=== PATIENT | male | born 1975 | race Caucasian/White ===

== ENCOUNTER → 2023-09-20 14:54 | Outpatient (REF) | payer BC, SELFPAY | LOC: PAVMRI 14:54 | PROVIDERS: ATTENDING PHYSICIAN Physician Assistant Surgical; FAMILY PHYSICIAN Family Medicine | DX: M16.12 Unilateral primary osteoarthritis, left hip (principal) | CPT/HCPCS: 73721 ==

== ENCOUNTER 2024-01-03 05:50 | Day surgery (SDC) | payer BC, SELFPAY ==
--- NOTE | 2023-12-01 08:36 | CM ---
Patient is scheduled for an elective L THR on 01/03/24- he is a same day patient. Spoke with patient prior to surgery. Introduced role of Orthopedic Navigator. Patient reports that he lives with his in a multi story home. There is one step to
enter and a flight of steps to the second floor. He currently functions independently and occasionally uses a cane. He has no other DME and has never had VN services. PCP is Jamison Lenz.
Discussed orthopedic program, DME he will need and post surgical plans. Reviewed that he will have VN services initially and will then start outpatient PT. Patient selects VN (face sheet faxed to VN to facilitate confirmation of benefits) for
his home care needs and will come to [facility] for outpatient PT.
Patient is in agreement with plan and states that his will be home with him.
Patient will complete online education.
Plan: Orthopedic Navigator will remain available to assist with the care of patient and will reassess discharge needs after surgery.
[2023-12-18 08:09] VITALS: BMI 27.6
[2023-12-18 09:03] LABS: Hematocrit 41.3 % (39.0-52.0); Hemoglobin 14.5 g/dL (13.0-18.0); Mean Corp Hgb Conc. 35.1 g/dL (33.0-37.0); Mean Corpuscular Hgb 32.7 pg (27.0-31.0); Mean Corpuscular Volume 93.2 fL (80.0-94.0); Mean Platelet Volume 10.2 fL (7.4-10.4); Platelet Count 228 10^3/uL (130-400); Red Blood Cell Count 4.43 10^6/uL (4.70-6.10); White Blood Cell Count 8.7 10^3/uL (4.8-10.8)
[2023-12-18 09:23] LABS: ALT (SGPT) 22 U/L (0-50); AST (SGOT) 28 U/L (17-59); Albumin 4.3 g/dl (3.5-5.0); Alkaline Phosphatase 94 U/L (38-126); Blood Urea Nitrogen 18 mg/dl (9-20); Calcium 9.2 mg/dl (8.4-10.2); Carbon Dioxide 26 mmol/L (22-30); Chloride 103 mmol/L (98-107); Estimated Creatinine Clearance 115 ml/min; Glucose 89 mg/dl (70-99); Sodium 139 mmol/L (135-145); Total Bilirubin 0.4 mg/dl (0.2-1.3); Total Protein 6.9 g/dl (6.3-8.2); eGFR > 60.00
[2023-12-18 09:52] LABS: Glycohemoglobin (HgbA1c) 5.3 % (4.0-5.6)
--- NOTE | 2023-12-18 10:00 | HPS.HSE ---
Family Physician
-
Family Physician: Jamison Lenz
Chief Complaint
-
Advanced primary osteoarthritis of the left hip. Same-day surgery.
History of Present Illness
The patient is a 48 year old male presenting today for advanced primary osteoarthritis of the left hip. The patient reports significant left hip pain secondary to this diagnosis. He notes that his current left hip pain is greatly
interfering with his activities of daily living and is overall impacting his quality of life. He has tried and failed multiple conservative treatment measures in the past for his left hip pain. These conservative treatment measures include physical
therapy, self-directed therapeutic exercises, attempted weight loss, medical management with Tylenol, NSAIDs, and medical marijuana as needed, and the application of ice and/or heat. Recent x-ray findings of the left hip demonstrated 100%
[id number] osteoarthritis. He was determined to be in need of a left total hip arthroplasty. He denies any current complaints today such as chest pain, shortness of breath at rest, palpitations, nausea, vomiting, diarrhea, lightheadedness,
dizziness, cough, sore throat, or fever.
Medical History
Past Medical History
Past Medical History: Reports Other
Additional Past Medical History:
1. Osteoarthritis.
2. History of atypical chest pain, likely related to anxiety; stress test and echo 2022 stable.
3. Exercise induced asthma.
4. Chronic dyspnea on exertion secondary to recent deconditioning.
5. GERD.
6. Migraines.
7. Vertigo.
8. Peripheral neuropathy.
9. Restless leg syndrome.
10. Multilevel degenerative disc disease.
11. Anxiety.
12. Depression.
13. Remote history of tobacco abuse.
14. Cannibis dependence.
Past Surgical History: Reports Other
Additional Past Surgical History:
1. Left knee arthroscopy.
2. C5-C7 discectomy and fusion.
3. C5-C7 decompression.
4. Lumbar laminectomy.
5. Appendectomy.
6. Multiple epidural steroid injections.
7. Colonoscopy.
8. Endoscopy.
Social History
Tobacco: Former Smoker (Former 1/4 pack per day cigarette smoker who quit tobacco altogether in 1999. )
Alcohol: Other (Social. )
Drug: Marijuana (He uses medical marijuana daily as needed for his current hip pain. )
Personal:
Living: Other (He lives with his spouse Ashley in a 2 story home. )
Family History
Family History: Not pertinent
Allergies / Home Medications
Allergy/Medication List:
Home medications:
1. Duloxetine 90 mg p.o. daily.
2. Geno 180 mg p.o. daily.
3. Guanfacine 1 mg p.o. three times a day.
4. Hydroxyzine 50 mg p.o. at bedtime.
5. Ibuprofen 600 mg p.o. every 6 hours as needed.
6. Lorazepam 0.5 mg p.o. daily as needed.
7. Medical marijuana 1 dose p.o. daily as needed.
8. Omeprazole 20 mg p.o. daily.
Allergies: Seasonal. No known drug allergies.
Review of Systems
-
A 12 point ROS was completed and negative except as noted: Yes
Physical Exam
Vital Signs
Blood pressure 130/93. Heart rate 72. Respirations 18. Pulse ox 99%.
Height 5 feet, 9 inches. Weight 84.7 kg. BMI 27.6.
Physical Exam
General: Well Developed, Well Nourished and No Apparent Distress
HEENT: NormoCephalic, Moist mucous membranes, Atraumatic and PERRLA
Respiratory: Clear
Cardiac: Regular Rhythm
GI: Soft, Non Tender and Non Distended
Musculoskeletal: Other (Right hip: 20 internal, 20 external without pain. Left hip: 5 internal with extremely severe pain, 20 external. )
Skin: Warm and Dry
Neuro: AO x 3 and Nonfocal/grossly intact
Laboratory Results
-
12/18/23 08:00
12/18/23 08:00
Laboratory Results
Total Bilirubin 0.4 mg/dl (0.2-1.3) 12/18/23 08:00
AST 28 U/L (17-59) 12/18/23 08:00
ALT 22 U/L (0-50) 12/18/23 08:00
Alkaline Phosphatase 94 U/L (38-126) 12/18/23 08:00
Hemoglobin A1c 5.3.
MRSA screen negative.
EKG 12/18/2023: Normal sinus rhythm.
Exercise stress test 04/07/2023: No ischemic ECG changes at 14.5 METS. Excellent exercise tolerance for given age and gender. Overall this is a low risk test result.
Echocardiogram 04/05/2023: Normal biventricular size and systolic function without regional wall motion abnormality. Estimated LVEF 55-60%. No significant valve disease.
Impression/Plan
-
CLEARANCES:
1. Primary medical, Dr. Jamison Lenz, cleared.
Primary medical phone number: [phone].
2. Dental waived.
IMPRESSION/PLAN:
1. Advanced primary osteoarthritis of the left hip in need of a left total hip arthroplasty with Dr. Augustin Mcguire on 01/03/2024. The benefits and risks of the procedure have been explained to the patient. The patient understands these risks and
wishes to proceed.
2. DVT prophylaxis - Aspirin and bilateral venous compression devices.
3. Pain management: The patient has stable comorbidities as referenced by his primary care physician and is medically optimized to proceed as a Same-Day Surgery candidate on 01/03/2024. In preparation for his procedure, he has already been
prescribed Oxycodone 5 mg, 1-2 tablets p.o. every 4 hours as needed for moderate-severe post-operative pain. He will also utilize Acetaminophen 1000 mg p.o. every 6 hours, Celebrex 200 mg p.o. daily, and Dexamethasone 4 mg p.o. twice a day for 3
days post-surgery.
Patient's phone number: [phone].
Patient's contact (Ashley Gamboa - Spouse): [phone].
[2023-12-18 15:16] VITALS: BMI 27.6
[2024-01-03] VITALS (24 sets, daily range): BP systolic 100–151; BP diastolic 52–89; BMI 27.6
[2024-01-03] MEDS: NORMOSOL-R 1000 IV ×2 (06:31→17:47)
[2024-01-03] MEDS: CELEBREX 200 MG PO (06:46)
[2024-01-03] MEDS: TYLENOL 650 MG PO ×5 (06:46→23:02)
[2024-01-03] MEDS: ROXICODONE 5 MG PO ×4 (10:12→23:02)
--- NOTE | 2024-01-03 10:46 | CM ---
Patient had planned L THR today. Met with patient and his at bedside to review discharge plans. Patient will be returning home today with services through [facility]. On Monday, , patient will start outpatient PT at [facility].
Patient has a standard walker here with him. Explained need for rolling walker. Script obtained and given to RN. PT will issue priro to discharge.
PT and [facility] were kept updated as to progress and discharge plans.
[2024-01-03] MEDS: ANCEF 5 IV ×2 (11:30→20:09)
[2024-01-03] MEDS: TORADOL 30 MG IV (14:38)
--- NOTE | 2024-01-03 14:40 | W.PN.UPDATE ---
Addendum entered and electronically signed by Lian Hair PA-C 01/04/24 12:47:
Correction: DOS is 01/03/24
Original Note:
Update Note
Progress Note Update
Pt was originally intended to be d/c same day; however will stay overnight d/t significant post-op pain and vasovagal episode earlier today.
L hip OA s/p L HENNA w/ Dr Mcguire 01/02/23
DVT prophylaxis - ASA, b/l venous foot pumps
Exercise induced asthma and chronic NG secondary to recent deconditioning - monitor O2
- IS
GERD - resume PPI therapy
Peripheral neuropathy - likely contributing to post-op pain - resume Cymbalta
Anxiety/Depression - will increase Lorazepam as needed to accommodate for post-surgical muscle spasms
History of atypical chest pain, likely related to anxiety; stress test and echo 2022 stable
Migraines
Vertigo
Restless leg syndrome
Multilevel degenerative disc disease
Remote history of tobacco abuse
Cannibis dependence
[2024-01-03] MEDS: CYMBALTA DELAYED RELEASE 30 MG PO (14:45)
[2024-01-03] MEDS: ATIVAN 0.5 MG PO (14:45)
[2024-01-03] MEDS: CYMBALTA DELAYED RELEASE 60 MG PO (14:45)
--- NOTE | 2024-01-03 16:04 | PTCARENOTE ---
1410 back in bed after attempt to discharge ,pt c/o increasing severe pain, pale and diaphoretic 10 out of 10 pain, left leg cool and very sensitive with touching to palpate pulses. pedal pulses found with doppler, and post tibial pulse able to be
palpated. pt's verbalized not wanting to take to home if this kind of pain is going to continue .Lian Hair aware, new orders given (see mar). Lian called pt and via cell bedside to discuss plan of staying overnight . pt and
Ashley ok with this plan. 1500 pt calm and less anxious, pain more tolerable. sleeping when undisturbed. waiting for room assignment. Gui siddiqui RN
[2024-01-03] MEDS: ASPIRIN 325 MG PO (17:48)
[2024-01-03] MEDS: PROTONIX 40 MG PO (17:48)
[2024-01-03] MEDS: CLARITIN 10 MG PO (17:48)
--- NOTE | 2024-01-03 18:17 | PTCARENOTE ---
Patient admitted from same day services post total left hip replacement.Patient was in the wheelchair ready to go home and had increased pain with a vagal response so patient was admitted overnight.Vital signs are stable.The patient reports his pain
at a 8 out of 10.Neurovascular assessment is within normal limits and ongoing.The patient is in his bed with the call gonzalez in reach.His is at the bedside.
[2024-01-03] MEDS: BACTROBAN 2% OINTMENT 1 APPLIC NASAL (20:09)
[2024-01-03] MEDS: COLACE 100 MG PO (20:09)
[2024-01-03] MEDS: SENOKOT 17.1999999999999993 MG PO (20:09)
[2024-01-03] MEDS: DECADRON 4 MG PO (20:11)
[2024-01-03] MEDS: ATARAX 50 MG PO (22:59)
[2024-01-04] MEDS: ANCEF 5 IV (03:48)
[2024-01-04 04:09] VITALS: BP 132/55
[2024-01-04] MEDS: TYLENOL PO (05:25)
[2024-01-04] MEDS: ROXICODONE 5 MG PO (06:32)
[2024-01-04 06:50] VITALS: BP 146/87
[2024-01-04] MEDS: ASPIRIN 325 MG PO (08:02)
[2024-01-04] MEDS: CLARITIN 10 MG PO (08:03)
[2024-01-04] MEDS: BACTROBAN 2% OINTMENT 1 APPLIC NASAL (08:03)
[2024-01-04] MEDS: PROTONIX 40 MG PO (08:03)
[2024-01-04] MEDS: COLACE 100 MG PO (08:03)
[2024-01-04] MEDS: DECADRON 4 MG PO (08:03)
[2024-01-04] MEDS: CYMBALTA DELAYED RELEASE 90 MG PO (08:03)
[2024-01-04] MEDS: CELEBREX 200 MG PO (08:03)
[2024-01-04] MEDS: SENOKOT 17.1999999999999993 MG PO (08:03)
[2024-01-04] MEDS: TYLENOL 650 MG PO (08:03)
--- NOTE | 2024-01-04 08:58 | CM ---
Addendum entered by Kelly Hawkins 01/04/24 10:09:
Met with patient's after therapy. Patient did well in therapy and she has no concerns about him coming home. Discussed going right to outpatient PT and she is comfortable with this; eval will remain scheduled for Monday, 01/07.
VN updated and referral cancelled.
Original Note:
Reviewed chart and held rounds with PT, OT and nursing. Patient did not go home same day due to elevated pain. met with patient at bedside. He reports feeling better today. Discussed discharge plans. The plan is for patient to return home at
discharge. He will have support from his when he goes home (she is off today and tomorrow). Patient will go directly to outpatient PT and will come to . He has an appointment scheduled for Monday, 01/07 (confirmed with Dr. Mcguire that patient
can wait until this date to begin therapy).
Patient has a cane, raised toilet seat and firm cushion. He ordered a hip kit. He was given a rolling walker yesterday.
He will use [facility] pharmacy if additional discharge prescriptions are needed.
Discharge plans were reviewed with patient's on 01/02.
[2024-01-04 09:04] VITALS: BP 130/75; BP 133/78; PULSE 73; O2SAT 98
--- NOTE | 2024-01-04 09:51 | W.PN.ORTHO ---
Today's Communication / Plan
-
Await PT recs. Pt did well w/ OT this AM.
D/c later today if remaining clinically stable.
Assessment
.
Distal Motor Intact: Yes
Dressing:
Scant old incisional bleeding. Dressing otherwise C/D/I.
Assessment:
Pt was originally intended to be d/c same day; however, he did stay overnight d/t significant post-op pain and a vasovagal episode in SDS.
Pt's pain now better controlled. He has had no further vasovagal episodes since yesterday.
L hip OA s/p Bryn zimmerman/ Dr Mcguire 01/03/24
DVT prophylaxis - ASA, b/l venous foot pumps
Exercise induced asthma and chronic NG secondary to recent deconditioning - O2 stable on RA
- IS
GERD - resumed PPI therapy
Peripheral neuropathy - initially contributing to post-op pain - resumed Cymbalta
Anxiety/Depression - can increase Lorazepam as needed to accommodate for post-surgical muscle spasms/anxiety
History of atypical chest pain, likely related to anxiety; stress test and echo 2022 stable
Migraines
Vertigo
Restless leg syndrome
Multilevel degenerative disc disease
Remote history of tobacco abuse
Cannibis dependence
Plan
.
Surgery / Date: Bryn zimmerman/ Dr Mcguire 01/02/23
DVT Prophylaxis: Aspirin
Activity:
Out of bed.
PT/OT
Discharge Plan: Home w/ Outpatient PT
Subjective
.
.:
Patient resting comfortably in his chair this morning.
L hip pain 'much better' in comparison to yesterday.
No further vasovagal episodes (likely attributed to severe post-op pain).
Denies any new complaints overnight.
Eager for potential d/c today.
Vital Signs and Labs
.
Vital Signs and Labs:
Lab Results
12/18/23 08:00
12/18/23 08:00
Temp Pulse Resp BP Pulse Ox
98.7 F 64 18 146/87 94
01/04/24 06:50 01/04/24 06:50 01/04/24 06:50 01/04/24 06:50 01/04/24 06:50
Non-invasive Hgb result: 13.4
Physical Exam
-
HEENT: No pallor, cyanosis, or jaundice. Throat clear.
NECK: Supple. No JVD.
RESPIRATORY: Lungs clear to auscultation.
CVS: S1, S2 normal. RRR.
ABDOMEN: Soft, non-tender. No distension.
EXTREMITIES: Strength equal, no calf pain with palpation/dorsiflexion. Calves soft.
SENIOR SYSTEMS ENGINEER: AOx3. No focal deficits. respite coordinator grossly intact
--- NOTE | 2024-01-04 10:02 | W.DS.TRANS ---
DC Summary - Sap Business Analyst
-
Discharge Instructions:
Sleep Apnea Risk Low
Discharge Diagnosis/Procedures L hip OA s/p L HENNA w/ Dr Mcguire 01/03/24
Diet Other diet
Additional Diets Diabetic carb controlled x1 week for wound
healing/infection prevention; then resume
regular diet.
Activity As tolerated,With Walker
Driving Restrictions Not until seen by your Dr
Bathing Restrictions OK to Shower
Other Services PT
Wound Care Dressing to be removed 1 week post-surgery.
Instructions:
Stand-Alone Forms: Total Hip/Knee Replacement D/C
Changes to Home Medications: Yes
Discharge Medications:
DC Medications w/original date entered in [facility]
Medical Marijuana 1 dose PO DAILYPRN PRN PAIN 12/14/23
duloxetine 60 mg capsule,delayed release 90 mg PO DAILY 12/14/23
fexofenadine 180 mg tablet 180 mg PO DAILY 12/14/23
guanfacine 1 mg tablet 1 mg PO TID 12/14/23
hydroxyzine HCl 50 mg tablet 50 mg PO HS 12/14/23
omeprazole 20 mg tablet,delayed release 20 mg PO DAILY 12/14/23
celecoxib 200 mg capsule (Celebrex) 200 mg PO DAILY #30 caps 12/18/23
dexamethasone 4 mg tablet 4 mg PO BID Anti-inflammatory #7 tabs 12/18/23
mupirocin 2 % topical ointment 1 applic intranasal BID #1 tube 12/18/23
ondansetron HCl 4 mg tablet 4 mg PO Q6H PRN nausea and vomiting #30 tabs 12/18/23
oxycodone 5 mg tablet 5 - 10 mg (1 - 2 x 5 mg) PO Q4H PRN moderate-severe pain #30 tabs 12/18/23
acetaminophen 500 mg tablet (Acetaminophen Extra Strength) 1,000 mg (2 x 500 mg) PO Q6H #60 tabs 01/03/24
aspirin 325 mg tablet 325 mg PO DAILY #30 tabs 01/03/24
docusate sodium 100 mg capsule (Colace) 100 mg PO BID #30 caps 01/03/24
sennosides 8.6 mg tablet (senna) 17.2 mg (2 x 8.6 mg) PO BID #30 tabs 01/03/24
lorazepam 0.5 mg tablet 0.5 mg PO BIDPRN PRN muscle spasms/anxiety #14 tabs 01/04/24
Home Medication Changes
celecoxib 200 mg capsule (Celebrex) 200 mg PO DAILY #30 caps 12/18/23
dexamethasone 4 mg tablet 4 mg PO BID Anti-inflammatory #7 tabs 12/18/23
ondansetron HCl 4 mg tablet 4 mg PO Q6H PRN nausea and vomiting #30 tabs 12/18/23
oxycodone 5 mg tablet 5 - 10 mg (1 - 2 x 5 mg) PO Q4H PRN moderate-severe pain #30 tabs 12/18/23
acetaminophen 500 mg tablet (Acetaminophen Extra Strength) 1,000 mg (2 x 500 mg) PO Q6H #60 tabs 01/03/24
aspirin 325 mg tablet 325 mg PO DAILY #30 tabs 01/03/24
docusate sodium 100 mg capsule (Colace) 100 mg PO BID #30 caps 01/03/24
sennosides 8.6 mg tablet (senna) 17.2 mg (2 x 8.6 mg) PO BID #30 tabs 01/03/24
lorazepam 0.5 mg tablet 0.5 mg PO BIDPRN PRN muscle spasms/anxiety #14 tabs 01/04/24
Pending Results: No
[2024-01-04 10:12] VITALS: BP 141/87; PULSE 76
== END 2024-01-04 10:35 | disposition home or self-care (01) ==
LOC: SDS 05:50
PROVIDERS: ATTENDING PHYSICIAN Orthopaedic Surgery; FAMILY PHYSICIAN Family Medicine; OTHER PHYSICIAN Physician Assistant
DX: M16.12 Unilateral primary osteoarthritis, left hip (principal)
CPT/HCPCS: 27130; 36415; 73502; 80053; 83036; 85027; 87070; 93005; 97110; 97116; 97162; 97166; 97530; 97535; C1713; C1776

== ENCOUNTER 2024-01-31 10:12 | Outpatient (RCR) | payer BC, SELFPAY | END 2024-01-31 23:59 | disposition home or self-care (01) | LOC: RPT 10:12 | PROVIDERS: ATTENDING PHYSICIAN Orthopaedic Surgery; FAMILY PHYSICIAN Family Medicine | DX: Z47.1 Aftercare following joint replacement surgery (principal); Z96.642 Presence of left artificial hip joint; Z73.6 Limitation of activities due to disability | CPT/HCPCS: 97110; 97112; 97140; 97162; 97530 ==

== ENCOUNTER 2024-02-29 10:01 | Outpatient (RCR) | payer BC, SELFPAY | END 2024-02-29 23:59 | disposition home or self-care (01) | LOC: RPT 10:01 | PROVIDERS: ATTENDING PHYSICIAN Orthopaedic Surgery; FAMILY PHYSICIAN Family Medicine | DX: Z47.1 Aftercare following joint replacement surgery (principal); Z96.642 Presence of left artificial hip joint; Z73.6 Limitation of activities due to disability | CPT/HCPCS: 97110; 97112; 97530 ==

== ENCOUNTER 2024-03-07 10:08 | Outpatient (RCR) | payer BC, SELFPAY | END 2024-03-07 13:16 | disposition home or self-care (01) | LOC: RPT 10:08 | PROVIDERS: ATTENDING PHYSICIAN Orthopaedic Surgery; FAMILY PHYSICIAN Family Medicine | DX: Z47.1 Aftercare following joint replacement surgery (principal); Z96.642 Presence of left artificial hip joint; Z73.6 Limitation of activities due to disability; R26.2 Difficulty in walking, not elsewhere classified | CPT/HCPCS: 97110; 97112; 97530 ==

== ENCOUNTER 2024-11-06 10:08 | Emergency (ER) | payer BC, SELFPAY ==
[2024-11-06 10:17] VITALS: BP 134/94
[2024-11-06 10:56] LABS: % Basophils 1.1 % (0-2); % Eosinophils 1.8 % (0-6); % Immature Granulocytes 0.2 % (0-0.5); % Lymphocytes 34.1 % (20.5-51.1); % Monocytes 11.3 % (1.7-9.3); % Neutrophils 51.5 % (42.2-75.2); Absolute Basophils 0.1 10^3/uL (0-0.2); Absolute Eosinophils 0.1 10^3/uL (0-0.7); Absolute Lymphocytes 2.1 10^3/uL (1.2-3.4); Absolute Monocytes 0.7 10^3/uL (0.1-0.6); Absolute Neutrophils 3.2 10^3/uL (1.4-6.5); Hematocrit 44.7 % (39.0-52.0); Hemoglobin 16.3 g/dL (13.0-18.0); Mean Corp Hgb Conc. 36.5 g/dL (33.0-37.0); Mean Corpuscular Hgb 32.7 pg (27.0-31.0); Mean Corpuscular Volume 89.6 fL (80.0-94.0); Nucleated Red Blood Cells % 0 % (-); Platelet Count 248 10^3/uL (130-400); Red Blood Cell Count 4.99 10^6/uL (4.70-6.10); White Blood Cell Count 6.3 10^3/uL (4.8-10.8)
[2024-11-06 10:59] LABS: ALT (SGPT) 23 U/L (0-50); AST (SGOT) 24 U/L (17-59); Albumin 4.6 g/dl (3.5-5.0); Alkaline Phosphatase 77 U/L (38-126); Blood Urea Nitrogen 16 mg/dl (9-20); Calcium 9.7 mg/dl (8.4-10.2); Carbon Dioxide 27 mmol/L (22-30); Chloride 105 mmol/L (98-107); Glucose 114 mg/dl (70-99); Potassium 4.5 mmol/L (3.5-5.1); Sodium 142 mmol/L (135-145); Total Bilirubin 1.3 mg/dl (0.2-1.3); Total Protein 7.3 g/dl (6.3-8.2); eGFR > 60.00
[2024-11-06 11:26] LABS: Troponin I < 0.012 ng/ml
--- NOTE | 2024-11-06 11:39 | ED.GENMED ---
History of Present Illness
General
Chief Complaint: Headache
Source: patient and spouse
Exam Limitations: none
Time Seen by Provider: 11/06/24 11:11
Nursing documentation reviewed up to this point in time: agreed with
History of Present Illness
History of Present Illness:
Patient is a 49-year male with past medical history of arthritis, cervical fusions, headaches presents to the ER for evaluation. Patient has a history of headaches which they describe as migraines however he has never fully been evaluated by
neurology for this. He typically will take Motrin for headaches. On Monday however several days ago he woke up with a headache which has worsened Advil. He has been in bed for the past several days because of headache. He is very light sensitive
and nauseous with this. he complains of pressure to the left side of his head. This is the same type of headache he typically gets but only worse. His has a history of migraines and gave him 50 mg of Imitrex yesterday and then another 25 last
night which ' did not touch his headache.' Patient denies any fevers. Patient denies any rash. Patient denies any trauma. Is on blood thinners. He did see a normal ocular specialist years ago as he does have a diagnosis of chronic nystagmus
from history of concussions.
Patient also complains of some mild left-sided chest discomfort that occurs when he takes a deep breath. reports he does have a history anxiety and uses marijuana daily and typically gets the symptoms related to anxiety. No prior history of
cardiac disease or high cholesterol. He vapes marijuana and he does not smoke cigarettes.
Review of Systems
Review of Systems
Allergies reviewed?: Yes
All Other Systems: ROS reviewed and negative except as documented in HPI and ROS
Constitutional: Reports no symptoms; Denies fever, fatigue or chills
Respiratory: Reports no symptoms
Cardiac: Reports chest pain (left sided chest pressure )
ABD/GI: Reports nausea; Denies vomiting
Musculoskeletal: Reports no symptoms
Skin: Reports no symptoms
Neurological: Reports no symptoms
Psychiatric: Reports no symptoms
Phy Exam
General Physical Exam
General Presentation: no apparent distress
General age: appears stated age
General Skin: warm and dry
General Habitus: normal
General Mental: alert
General Hydration: appears well hydrated
ENT Exam
ENT Exam: EOMI and neck supple
Eye Exam
Eye Exam: PERRL and EOMI
Eye Exam General: PERRL: bilateral and EOM intact: bilateral
Pupil Exam: Bilateral: round and reactive
Neurological Exam
Neurological Exam: alert, oriented x3, no motor deficits and no sensory deficits
[place] Coma Scale
Eye Opening: Spontaneous
Verbal Response: Oriented
Motor Response: Obeys Commands
GCS Total Score: 15
Cerebellar
Cerebellar Function: normal finger to nose
Musculoskeletal Exam
Musculoskeletal Exam: full ROM
Skin Exam
Skin Exam: normal color and warm/dry
Psychiatric Exam
Psychiatric Exam: normal mood/affect
Course
Orders/Labs/Results
Orders:
Orders
11/06/24 10:10
EKG [Electrocardiogram (*1)] Urgent
Reason for Study: Chest Pain
EKG- Treatment ONCE
11/06/24 10:25
Complete Blood Count/With Diff Urgent
Comprehensive Metabolic Panel Urgent
Troponin I Urgent
11/06/24 11:38
CT Head W/o Iv Contrast Urgent
Comment:
Reason For Exam: headache
Diphenhydramine [Benadryl] 25 mg IV NOW STA
Metoclopramide [Reglan] 10 mg IV NOW STA
11/06/24 11:39
0.9% Sodium Chloride 1000 ml [Nss] 1,000 ml IV BOLUS
11/06/24 13:30
Ketorolac [Toradol] 15 mg IV NOW STA
11/06/24 15:00
Acetaminophen 1000MG/100Ml [Ofirmev] 1,000 mg in 100 ml IV ONCE
Acetaminophen IV Indication:: ED Narcotic Naive Pt-ONCE
Abnormal Lab Results
11/06/24
10:25
MCH 32.7 H pg
(27.0-31.0)
RDW 11.0 L %
(11.5-14.5)
Absolute Monos (auto) 0.7 H 10^3/uL
(0.1-0.6)
Monocytes % 11.3 H %
(1.7-9.3)
Glucose 114 H mg/dl
(70-99)
11/06/24 10:25
11/06/24 10:25
Vital Signs
Initial and Last Documented VS:
Initial Vital Signs
Temp Pulse Resp BP Pulse Ox
97.6 F 72 16 134/94 99
11/06/24 10:17 11/06/24 10:17 11/06/24 10:17 11/06/24 10:17 11/06/24 10:17
Last Documented Vital Signs
Temp Pulse Resp BP Pulse Ox
97.6 F 60 16 133/80 97
11/06/24 10:17 11/06/24 16:16 11/06/24 15:05 11/06/24 16:00 11/06/24 16:00
MDM/Problems Addressed
Differential Diagnosis Includes:
not limited to: headache, migraine type headache
MDM/Problems Addressed:
Patient is a 49-year male who has had headaches for years never fully diagnosed as migraines but he does describe this as migraines. Today he presented for migraine but is not improving despite several days of Advil even 's Imitrex. Though
this pain is similar to his headaches in the past this is one of the worst he has ever had. Will CT his head. Will give Reglan fluids Benadryl and then plan for Toradol. He is in no acute distress however within normal neurologic exam he denies
any fevers and is afebrile no rash no meningismus. Incidentally he has some mild chest discomfort to the left chest with taking a deep breath. reports he does have history anxiety and this presents typically with chest pain he has had this
multiple times in the past and uses daily marijuana for anxiety as well as pain(related to chronic neck issues and fusion).
On re-exam pt is feeling much better. he reports the photophobia has resolved and his headache has drastically decreased. He is very nontoxic no reports of fevers at home no meningismus afebrile normal white count as documented no trauma symptoms
are consistent with migraine will DC with outpatient family doctor and neuro follow up.
*Radiology
Radiology exam reviewed: radiology read reviewed
*Pulse Oximetry
Patient hypoxic: no
*Critical Care Note
Total Time (30-74mins, 75-104mins- exclusive of procedures): Not Applicable
ED Attending Note
-
Portions of this chart may have been created with voice recognition software.� Occasional wrong word or��sound alike� substitutions may have occurred due to the inherent limitations of voice recognition software.
Discharge Plan
Departure
Patient Disposition: Home (Routine Discharge)
Date of Disposition: 11/06/24
Time of Disposition: 16:15
Patient with high blood pressure during this ER visit?: Yes
Condition: Fair
Covid-19: Not Applicable
Discharge Problem:
Headache
Instructions: Headache, Adult (DC), BLOOD PRESSURE
Prescriptions:
No Action
hydroxyzine HCl 50 mg Tablet
50 mg PO HS
fexofenadine 180 mg Tablet
180 mg PO DAILY
guanfacine 1 mg Tablet
1 mg PO TID
duloxetine 60 mg Capsule,Delayed Release(Dr/Ec)
90 mg PO DAILY
omeprazole 20 mg Tablet,Delayed Release (Dr/Ec)
20 mg PO DAILY
Medical Marijuana
1 dose PO DAILYPRN PRN (Reason: PAIN)
oxycodone 5 mg tablet
5 - 10 mg PO Q4H PRN (Reason: moderate-severe pain) Qty: 30 0RF
Rx Instructions:
1 tab for moderate pain, 2 if severe.
Dx total joint.
celecoxib [Celebrex] 200 mg capsule
200 mg PO DAILY Qty: 30 0RF
Patient Comments:
last took 01/02/24 in am
Rx Instructions:
Take with food.
DO NOT take within 2 hours of Aspirin post-surgery.
dexamethasone 4 mg tablet
4 mg PO BID Qty: 7 0RF
Rx Instructions:
Start night of discharge and continue twice a day for 3 days post-surgery.
Take with food.
ondansetron HCl 4 mg tablet
4 mg PO Q6H PRN (Reason: nausea and vomiting) Qty: 30 0RF
mupirocin 2 % ointment
1 applic intranasal BID Qty: 1 0RF
Patient Comments:
started treatment monday01/01/24 and completed BID last took at home 01/03/24 in am
acetaminophen [Acetaminophen Extra Strength] 500 mg tablet
1,000 mg PO Q6H Qty: 60 0RF
Rx Instructions:
DO NOT exceed >4000 mg daily.
aspirin 325 mg tablet
325 mg PO DAILY Qty: 30 0RF
Rx Instructions:
Take daily x4 weeks for blood clot prevention.
docusate sodium [Colace] 100 mg capsule
100 mg PO BID Qty: 30 0RF
sennosides [senna] 8.6 mg tablet
17.2 mg PO BID Qty: 30 0RF
lorazepam 0.5 mg Tablet
0.5 mg PO BIDPRN PRN (Reason: muscle spasms/anxiety) Qty: 14 0RF
Referrals:
Promise Gutierrez MD [Active] -
Joellen Dillon DO [Family Provider] -
Activity Restrictions/Additional Instructions:
Office/please follow-up with your primary doctor as well as neurology for further evaluation of headaches.
You may try [id number] Excedrin/ibuprofen
Return if any worsening of symptoms
Interventions
Interventions:
*Risk Screen - Suicide Last Done: 11/06/24 10:17
*General Assessment Last Done: 11/06/24 10:17
*Neglect/Abuse Screening Last Done: 11/06/24 10:17
*ED- Fall Risk Assessment Last Done: 11/06/24 10:55
*ED COVID-19 Vaccine History Last Done: 11/06/24 10:17
ED- Neurological Assessment Last Done: 11/06/24 10:55
Discharge Date and Time
Print Language: SRI LANKAN
[2024-11-06] MEDS: NSS 1000 IV (11:50)
[2024-11-06] MEDS: BENADRYL 25 MG IV (11:51)
[2024-11-06] MEDS: REGLAN 10 MG IV (11:51)
[2024-11-06 11:54] VITALS: BP 135/86
[2024-11-06 12:00] VITALS: BP 126/100
[2024-11-06] MEDS: TORADOL 15 MG IV (13:34)
[2024-11-06 14:00] VITALS: BP 132/83
[2024-11-06 15:00] VITALS: BP 129/89
[2024-11-06] MEDS: OFIRMEV 100 IV (15:01)
[2024-11-06 16:00] VITALS: BP 133/80
== END 2024-11-06 16:49 | disposition home or self-care (01) ==
LOC: EMR 10:08
PROVIDERS: EMERGENCY PHYSICIAN Student in an Organized Health Care Education/Training Program; FAMILY PHYSICIAN Internal Medicine
DX: R51.9 Headache, unspecified (principal); R03.0 Elevated blood-pressure reading, without diagnosis of hypertension
CPT/HCPCS: 99285; 96374; 96375 ×3; 96361; 70450; 80053; 84484; 85025; 93005